=== PATIENT | male | born 1970 | race Caucasian/White ===

== ENCOUNTER 2022-04-23 12:53 | Emergency (ER) | payer MEDICAID ==
[~2022-04-23] VITALS: Ht 167.6 cm; Wt 113.0 kg
[2022-04-23 13:28] VITALS: BP 158/79
[2022-04-23] MEDS ORDERED: KETOROLAC 60MG/2ML VIAL IM ONE (18:00)
[2022-04-23 18:45] LABS: BASOPHILS % 0.6 % (0.0-2.0); EOSINOPHILS % 0.2 % (0.0-5.0); HEMOGLOBIN. 16.1 g/dL (14.0-18.0); LYMPHOCYTES % 24.3 % (20.0-50.0); MEAN CORPUSCULAR HEMOGLOBIN 29.9 pg (28.0-32.0); MEAN CORPUSCULAR VOLUME 87.3 fL (80.0-94.0); MEAN PLATELET VOLUME 11.5 fl (7.4-10.4); MONOCYTES % 8.8 % (2.0-8.0); NEUTROPHILS % 66.1 % (40.0-76.0); PLATELET 242 x1000/uL (130-400); RED BLOOD CELL COUNT 5.39 mill/uL (4.7-6.1); RED CELL DISTRIBUTION WIDTH 13.5 % (11.6-14.6)
[2022-04-23 18:49] LABS: CHLORIDE 93 mEq/L (98-107)
[2022-04-23 18:53] LABS: INR 1.1; PROTHROMBIN TIME 11.7 sec (9.6-11.0)
[2022-04-23 19:47] LABS: CLARITY URINE CLEAR (CLEAR); COLOR URINE DARK YELLOW (YELLOW); KETONES URINE 3+ (NEGATIVE); LEUKOCYTE ESTERASE URINE NEGATIVE (NEGATIVE); NITRITE URINE NEGATIVE (NEGATIVE); OCCULT BLOOD URINE NEGATIVE (NEGATIVE); PROTEIN URINE NEGATIVE (NEGATIVE); SPECIFIC GRAVITY URINE 1.022 (1.005-1.030)
[2022-04-23] MEDS ORDERED: T3 PO (20:00)
== END 2022-04-23 20:18 | disposition home or self-care (01) ==
LOC: ER 12:53
DX: R10.31 Right lower quadrant pain (principal)
CPT/HCPCS: 36415; 74176; 80053; 81003; 83690; 85025; 85610; 96372; 99284; J1885